=== PATIENT | male | born 1995 | race American Indian/Alaskan Native ===

== ENCOUNTER 2022-04-02 14:43 | Emergency (ER) | payer SELFPAY ==
[2022-04-02 15:06] VITALS: BP 104/59
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
== END 2022-04-02 19:46 | disposition home or self-care (01) ==
LOC: ED 14:43
DX: M25.511 Pain in right shoulder (principal)
CPT/HCPCS: 99282